=== PATIENT | female | born 1940 | race Two or more races ===

== ENCOUNTER 2024-02-20 10:23 | Outpatient (CLI) | payer OTHER ==
[2024-02-21] MEDS ORDERED: SYNTHROID75 MCG PO (13:52)
[2024-02-21] MEDS ORDERED: SIMVASTATIN40 MG PO (13:53)
[2024-02-21] MEDS ORDERED: ZESTRIL20 MG PO (13:53)
[2024-02-21] MEDS ORDERED: METFORMIN HCL500 M3 PO (13:53)
== END 2024-02-20 10:30 | disposition home or self-care (01) ==
LOC: RAD 10:23
PROVIDERS: ATTEND Orthopaedic Surgery
DX: M25.561 Pain in right knee (principal); M25.562 Pain in left knee

== ENCOUNTER 2024-02-27 05:40 | Day surgery (SDC) | payer OTHER ==
[2024-02-21 14:12] LABS: PH,URINE 6.5 (5.0-8.0); URINE APPEARANCE Clear; URINE BILIRRUBIN Negative (NEGATIVE); URINE BLOOD Negative; URINE COLOR Yellow; URINE GLUCOSE Negative (NEGATIVE); URINE KETONE Trace (NEGATIVE); URINE LEUKOCYTE Small; URINE NITRATE Negative; URINE PROTEIN Negative (NEGATIVE)
[2024-02-21 14:14] LABS: HEMOGLOBIN 12.6 g/dL (12.0-15.00); MEAN CELL VOLUME 85.3 fL (80.00-100.00); MEAN CORPUSCULAR HEMOGLOBIN 28.3 pg (27.00-32.0); MEAN CORPUSCULAR HGB CONC 33.2 g/dl (32.0-36.0); PLATELET COUNT 251 K/uL (150-450); RED BLOOD COUNT 4.45 M/uL (4.00-6.00)
[2024-02-21 14:15] LABS: URINE BACTERIA 23.9 uL (0.0-1933); URINE RBC 49.9 uL (0.0-20.8); URINE WBC 12.9 uL (0.0-23.2)
[2024-02-21 14:40] LABS: URINE CAST 0.61 uL (0.0-1.40)
[2024-02-21 14:41] LABS: COL EPI 73 SECONDS (82-175)
[2024-02-21 14:55] LABS: ALBUMIN 3.4 gm/dL (3.4-5.0); BILIRUBIN TOTAL 0.48 mg/dL (0.3-1.2); CALCIUM 9.8 mg/dL (8.5-10.1); CREATININE SERUM 0.6 mg/dL (0.55-1.02); GFR 95.95; GLOBULINA 3.2 G/DL (2.4-3.5); POTASSIUM 4.35 mEq/L (3.5-5.1); TOTAL PROTEIN 6.6 gm/dL (6.4-8.2)
[2024-02-21 15:01] LABS: INR 1.02; PARTIAL THROMBOPLASTIN TIME 28.3 SECONDS (22.0-34.0); PROTHROMBIN TIME 11.1 SECONDS (9.0-11.5)
[~2024-02-27 05:40] MED LIST: METFORMIN HCL500 M3 PO; SIMVASTATIN40 MG PO; SYNTHROID75 MCG PO; ZESTRIL20 MG PO
[2024-02-27] MEDS ORDERED: CEFAZOLIN SODIUM 1,000 MG VIAL IV ONE (09:00)
[2024-02-27] MEDS ORDERED: MORPHINE SULFATE 4 MG/ML VIAL IV ONE ×2 (10:05→11:50)
== END 2024-02-27 14:45 | disposition home or self-care (01) ==
LOC: CIR.AMB 05:40
PROVIDERS: ATTEND Orthopaedic Surgery
DX: S82.031A Displaced transverse fracture of right patella, initial encounter for closed fracture (principal); Z91.041 Radiographic dye allergy status; E11.9 Type 2 diabetes mellitus without complications; E03.9 Hypothyroidism, unspecified; M19.90 Unspecified osteoarthritis, unspecified site

== ENCOUNTER → 2024-03-14 | Emergency (ER) | payer OTHER ==
[~2024-03-14] VITALS: Ht 160 cm; Wt 59.0 kg
[2024-03-14 14:40] VITALS: BP 134/62; O2SAT 100
== END | disposition left against medical advice (07) ==
LOC: ER 14:01
DX: Z53.21 Procedure and treatment not carried out due to patient leaving prior to being seen by health care provider (principal)